=== PATIENT | male | born 1965 | race Two or more races ===

== ENCOUNTER 2023-08-24 04:12 | Day surgery (SDC) | payer OTHER ==
[2023-08-18 13:54] VITALS: BMI 26.9
[2023-08-24 09:48] VITALS: TEMP 98
[2023-08-24 12:35] VITALS: RESP 18
[2023-08-24 12:37] VITALS: BP 136/88; PULSE 86
== END 2023-08-24 12:45 | disposition home or self-care (01) ==
LOC: JASU-ENDO 04:12
PROVIDERS: ATTEND Internal Medicine Gastroenterology
PROC: 0DBN8ZX Excision of Sigmoid Colon, Via Natural or Artificial Opening Endoscopic, Diagnostic (ICD-10-PCS; principal; 2023-08-24 11:00)
DX: Z12.11 Encounter for screening for malignant neoplasm of colon (principal); D12.5 Benign neoplasm of sigmoid colon; K64.8 Other hemorrhoids
CPT/HCPCS: 88305-TC